=== PATIENT | female | born 1995 | race American Indian/Alaskan Native ===

== ENCOUNTER 2018-11-08 17:59 | Observation (INO) | payer MEDICAID ==
[2018-11-22] MEDS ORDERED: Gadodiamide 287 MG/ML VIAL (15ML) IV ONE (16:12)
[2018-11-22 17:25] VITALS: BMI 36.3
--- NOTE | 2018-11-22 19:38 | CP.PCM.HP ---
<Sultan Alba - Last Filed: 11/22/18 19:57> History of Present Illness - History of Present Illness History of Present Illness: 23 year old Female with PMHx of seizure disorder, PCOS, prediabetes and mood disorder admitted to ICU for 24 hour video EEG. Patient reports she started to develop seizure episodes starting February 2018 and has had multiple episodes since then. States last seizure was about a month ago. Denies any acute complaints today. Denies any headache, dizziness, chest pain, nausea or vomiting. LMP 10/03/18 ROS: All 12 systems reviewed and negative except as mentioned in HPI Neurologist: Dr. Velez PMHx: seizure disorder, PCOS, prediabetes, mood disorder Surgical hx: Adenoidectomy at age 13 Social hx: social EtOH use. Denies smoking cigarettes or using illicit drugs Family hx: Maternal cousin has seizure disorder Allergies: NKDA Medication: Seroquel 700 mg po qhs, metformin 500 mg po daily (has not started yet) Present on Admission - Present on Admission Any Indicators Present on Admission: No Review of Systems - Review of Systems Review of Systems: All 12 systems reviewed and negative except as mentioned in HPI Past Patient History - Past Social History Smoking Status: Never Smoked - CARDIAC Hx Cardiac Disorders: No - PULMONARY Hx Respiratory Disorders: No - NEUROLOGICAL Hx Neurological Disorder: No - HEENT Hx HEENT Problems: No - RENAL Hx Chronic Kidney Disease: No - ENDOCRINE/METABOLIC Hx Endocrine Disorders: Yes Other/Comment: Pre-diabetes - HEMATOLOGICAL/ONCOLOGICAL Hx Blood Disorders: No - INTEGUMENTARY Hx Dermatological Problems: No - MUSCULOSKELETAL/RHEUMATOLOGICAL Hx Musculoskeletal Disorders: No Hx Falls: No - GASTROINTESTINAL Hx Gastrointestinal Disorders: No - GENITOURINARY/GYNECOLOGICAL Hx Genitourinary Disorders: Yes Other/Comment: PCOS - PSYCHIATRIC Hx Psychophysiologic Disorder: Yes Hx Substance Use: No Other/Comment: OCD - SURGICAL HISTORY Hx Surgeries: Yes - ANESTHESIA Hx Anesthesia: Yes Hx Anesthesia Reactions: No Hx Malignant Hyperthermia: No Has any member of the family had a problem w/ anesthesia?: No Meds Allergies/Adverse Reactions: Allergies Allergy/AdvReac Type Severity Reaction Status Date / Time No Known Allergies Allergy Verified 11/22/18 17:32 Physical Exam - Constitutional Appears: No Acute Distress Additional comments: Overweight - Head Exam Head Exam: NORMAL INSPECTION - Eye Exam Eye Exam: Normal appearance - ENT Exam ENT Exam: Mucous Membranes Moist - Neck Exam Neck exam: Positive for: Normal Inspection - Respiratory Exam Respiratory Exam: Clear to Auscultation Bilateral, NORMAL BREATHING PATTERN. absent: Rhonchi, Wheezes - Cardiovascular Exam Cardiovascular Exam: REGULAR RHYTHM, +S1, +S2 - GI/Abdominal Exam GI & Abdominal Exam: Normal Bowel Sounds, Soft. absent: Tenderness - Extremities Exam Extremities exam: Positive for: normal inspection - Neurological Exam Neurological exam: Alert, Oriented x3 - Psychiatric Exam Psychiatric exam: Normal Affect, Normal Mood - Skin Skin Exam: Normal Color Results - Vital Signs Recent Vital Signs: Last Vital Signs Temp Pulse 92 H 11/22/18 18:26 Resp 19 11/22/18 18:26 BP 136/88 11/22/18 18:00 Pulse Ox 100 11/22/18 18:26 Assessment & Plan - Assessment and Plan (Free Text) Assessment: 23 year old Female with PMHx of seizure disorder, PCOS, prediabetes and mood disorder admitted for ICU for 24 hour video EEG. Patient reports she started to develop seizure episodes since February 2018 and has had multiple episodes since then. States last seizure was about a month ago. Denies any acute complaints today. Denies any headache, dizziness, chest pain, nausea or vomiting. LMP 10/03/18 Plan: Seizure disorder -Consult neurology, Dr. Velez. -Patient had brain MRI today. f/u brain MRI report Prediabetes -Hold metformin -Insulin lispro ACHS -accucheck ACHS Mood disorder -c/w home medication of seroquel 700 mg po hs DVT prophylaxis -SCDs Plan discussed with Dr. Jay Willis, pgy-2 <Allison Thompson - Last Filed: 11/23/18 18:07> Results - Vital Signs Recent Vital Signs: Last Vital Signs Temp 97.6 F 11/23/18 12:00 Pulse 88 11/23/18 18:00 Resp 19 11/23/18 18:00 BP 123/80 11/23/18 18:00 Pulse Ox 100 11/23/18 18:00 - Labs Labs: Laboratory Results - last 24 hr 11/22/18 11/22/18 11/23/18 19:04 21:46 06:23 POC Glucose (mg/dL) 95 107 102 11/23/18 11/23/18 12:09 17:57 POC Glucose (mg/dL) 111 H 98 Attending/Attestation - Attestation I have personally seen and examined this patient.: Yes I have fully participated in the care of the patient.: Yes I have reviewed all pertinent clinical information: Yes Notes (Text): 11/23/18 18:07 agree with findings and plan as above.
[2018-11-22] MEDS: Insulin Lispro (humaLOG) 100 Units/ml Inj SC SCH (22:36)
--- NOTE | 2018-11-23 07:14 | PCM.VEEG ---
Video EEG - Procedure Start Date: 11/22/18 Start Time: 20:15 End Date: 11/23/18 End Time: 07:00 Technical Summary: DATA ACQUISITION: This was a multichannel inpatient video-EEG, a minimum of 22 channels were uti lized, performed in accordance with recommendations specified by the [place] [employer] (Nicolasa Coronel et al. ACNS Guideline 1: Minimum Technical Requirements for Performing Clinical Electroencephalography. Journal of Clinical Neurophysiology 2016;33:303-7). The 10-20 electrode placement system was utilized in accordance with guidelines detailed by the International Federation of Clinical Neurophysiology (Gino Draper et al. The Ten-Twenty Electrode System of the International Federation. Recommendations for the Practice of Clinical Neurophysiology: Guidelines of the International Federation of Clinical Physiology 1999; EEG Suppl. 52.). DATA REVIEW / SPIKE DETECTION / DIGITAL ANALYSIS: The entire EEG was scanned and reviewed. Synchronized audio and video recording were reviewed at the time of each alarm and whenever an abnormality or suspicious activity was noted. The entire recording was analyzed utilizing an automated digital spike and seizure analysis program and all automatic spike and seizure detections were manually reviewed. A compressed spectral array was displayed and reviewed alongside the raw EEG tracings. In addition, further analysis of the EEG was performed when abnormalities were identified, including montage changes, dipole source localization, and frequency band identification. This study was attended 24 hours per day. - Interpretation Description of the study: 23 y/o woman admitted electively for VEEG events characterization. EEG Finding during wakefulness: During active states, the EEG was characterized by 14-25 Hz, 15-30 uV activity bilaterally in fronto-central regions. Resting wakefulness was characterized by a symmetric posterior dominant rhythm of 9 to 10 Hz, 30-50 uV, which was reactive to eye opening and closing. Drowsiness was associated with slow roving eye movements, slowing and fragmentation of the posterior dominant rhythm, and bilateral 4-7 Hz, 40-70 uV theta activity, sometimes with a shifting predominance. Hyperventilation and photic stimulation were not performed EEG Finding during sleep: Light sleep was recorded and was characterized by fronto-central slowing at 5-7 H, 50-125 uV, sharp central vertex waves, bilateral sleep spindles, and K- complexes; shifting asymmetries were evident. Deeper stages of sleep were recorded and were characterized an increasing frequency of 1-4 Hz, 50-100 uV delta activity. REM sleep was also recorded and was characterized by mixed frequency (3-15 Hz) low voltage (< 20 uV) activity with clusters of rapid horizontal and vertical eye movements. There were no significant asymmetries noted during sleep. Interictal non-epileptiform abnormalities: None Interictal epileptiform abnormalities: None Ictal epileptiform abnormalities: No seizures 1 PB activation at 5;34 patient pushes, no abnormal behavior seen. Not clear if she had a typical episode or not. EEG; normal awake architecture Induction procedures: none - Impression Impression: This is a normal Video EEG monitoring study.
[2018-11-23] MEDS: Insulin Lispro (humaLOG) 100 Units/ml Inj SC SCH ×3 (08:38→21:22)
--- NOTE | 2018-11-23 15:49 | CP.PCM.PN ---
Subjective - Date & Time of Evaluation Date of Evaluation: 11/23/18 Time of Evaluation: 11:30 - Subjective Subjective: Patient seen bedside. Undergoing 36 hour EEG monitoring Hemodynamically stable Objective - Vital Signs/Intake and Output Vital Signs (last 24 hours): Temp Pulse Resp BP Pulse Ox 97.6 F 68 22 111/75 99 11/23/18 12:00 11/23/18 14:00 11/23/18 14:00 11/23/18 14:00 11/23/18 14:00 Intake and Output: 11/23/18 11/23/18 06:59 18:59 Intake Total 100 600 Balance 100 600 - Medications Medications: Current Medications Insulin Human Lispro (Humalog) 0 units SC [facility]; Protocol Last Admin: 11/23/18 08:38 Dose: Not Given Quetiapine Fumarate (Seroquel) 300 mg PO [facility] Last Admin: 11/22/18 22:36 Dose: 300 mg Quetiapine Fumarate (Seroquel) 400 mg PO [facility] Last Admin: 11/22/18 22:36 Dose: 400 mg - Constitutional Appears: Non-toxic, No Acute Distress - Head Exam Head Exam: ATRAUMATIC, NORMOCEPHALIC - Eye Exam Eye Exam: EOMI, Normal appearance Pupil Exam: NORMAL ACCOMODATION - ENT Exam ENT Exam: Normal Exam - Neck Exam Neck Exam: Full ROM, Normal Inspection - Respiratory Exam Respiratory Exam: Clear to Ausculation Bilateral, NORMAL BREATHING PATTERN. absent: Respiratory Distress - Cardiovascular Exam Cardiovascular Exam: REGULAR RHYTHM, +S1, +S2. absent: JVD - GI/Abdominal Exam GI & Abdominal Exam: Soft, Normal Bowel Sounds. absent: Distended, Guarding, Tenderness, Rebound - Rectal Exam Rectal Exam: Deferred - Extremities Exam Extremities Exam: Normal Capillary Refill, Normal Inspection. absent: Pedal Edema - Back Exam Back Exam: NORMAL INSPECTION - Neurological Exam Neurological Exam: Alert, Awake, CN II-XII Intact, Oriented x3 - Psychiatric Exam Psychiatric exam: Normal Affect - Skin Skin Exam: Dry, Normal Color, Warm Assessment and Plan - Assessment and Plan (Free Text) Assessment: 23 year old Female with PMHx of seizure disorder, PCOS, prediabetes and mood disorder admitted for ICU for 24 hour video EEG.She reported developing seizures since February 2018 and has had multiple episodes since then. At present hemodynamicvally stable EEG monitoring as of now has shown no seizure activity. As per Neuro will continue EEG monityoring for 36 hours 1.Seizure disorder continue EEG monitoring for 36 hours as per neuro neurology consult with Dr. Agustin baumann 2.Prediabetes accuchecks ACHS, insulin coverage 3.Mood disorder on seroquel 4.DVT prophylaxis SCDs
--- NOTE | 2018-11-23 20:14 | CP.PCM.CON ---
History of Present Illness - History of Present Illness History of Present Illness: Neurology consult called by DR. Allison MESA mD Miss Amy Ray is a patient of mine from clinic, referred for Video eeg monitoring session of 36 hours. Miss Ray started to have Past Patient History - Past Social History Smoking Status: Never Smoked - CARDIAC Hx Cardiac Disorders: No - PULMONARY Hx Respiratory Disorders: No - NEUROLOGICAL Hx Neurological Disorder: No - HEENT Hx HEENT Problems: No - RENAL Hx Chronic Kidney Disease: No - ENDOCRINE/METABOLIC Hx Endocrine Disorders: Yes Other/Comment: Pre-diabetes - HEMATOLOGICAL/ONCOLOGICAL Hx Blood Disorders: No - INTEGUMENTARY Hx Dermatological Problems: No - MUSCULOSKELETAL/RHEUMATOLOGICAL Hx Musculoskeletal Disorders: No Hx Falls: No - GASTROINTESTINAL Hx Gastrointestinal Disorders: No - GENITOURINARY/GYNECOLOGICAL Hx Genitourinary Disorders: Yes Other/Comment: PCOS - PSYCHIATRIC Hx Psychophysiologic Disorder: Yes Hx Substance Use: No Other/Comment: OCD - SURGICAL HISTORY Hx Surgeries: Yes - ANESTHESIA Hx Anesthesia: Yes Hx Anesthesia Reactions: No Hx Malignant Hyperthermia: No Has any member of the family had a problem w/ anesthesia?: No Meds Allergies/Adverse Reactions: Allergies Allergy/AdvReac Type Severity Reaction Status Date / Time No Known Allergies Allergy Verified 11/22/18 17:32 - Medications Medications: Current Medications Insulin Human Lispro (Humalog) 0 units SC [facility]; Protocol Last Admin: 11/23/18 12:00 Dose: Not Given Quetiapine Fumarate (Seroquel) 300 mg PO [facility] Last Admin: 11/22/18 22:36 Dose: 300 mg Quetiapine Fumarate (Seroquel) 400 mg PO [facility] Last Admin: 11/22/18 22:36 Dose: 400 mg Results - Vital Signs Recent Vital Signs: Last Vital Signs Temp 97.6 F 11/23/18 12:00 Pulse 88 11/23/18 18:00 Resp 19 11/23/18 18:00 BP 123/80 11/23/18 18:00 Pulse Ox 100 11/23/18 18:00 - Labs Labs: Laboratory Results - last 24 hr 11/22/18 11/22/18 11/23/18 19:04 21:46 06:23 POC Glucose (mg/dL) 95 107 102 11/23/18 11/23/18 12:09 17:57 POC Glucose (mg/dL) 111 H 98
[2018-11-24] MEDS: Insulin Lispro (humaLOG) 100 Units/ml Inj SC SCH ×2 (06:36→13:16)
[2018-11-24 09:25] VITALS: TEMP 98
--- NOTE | 2018-11-24 10:48 | CP.PCM.DIS ---
Provider - Provider Date of Admission: 11/22/18 17:35 Attending physician: Allison Thompson DO Consults: 11/22/18 19:24 Neurology Consult Routine Comment: Consulting Provider: Gustavo Velez Consulting Physician: Gustavo Velez Reason for Consult: hx epilepsy, 24 hr video EEG Time Spent in preparation of Discharge (in minutes): 10 Hospital Course - Lab Results Lab Results: Micro Results 11/22/18 08:06 Naris MRSA Culture (Admit) - Final MRSA NOT DETECTED Most Recent Lab Values POC Glucose (mg/dL) 97 mg/dL (65-110) 11/24/18 05:15 - Hospital Course Hospital Course: 23 year old Female with PMHx of seizure disorder, PCOS, pre diabetes and mood disorder admitted for ICU for 36 hour video EEG monitoring .She reported developing seizures since February 2018 and has had multiple episodes since then. At present hemodynamicvally stable EEG monitoring as of now has shown no seizure activity. Patient to be discharged home after testing and follow up with Dr. Velez 1.Seizure disorder EEG monitoring for 36 hours as per neuro neurology consult with Dr. Velez appreciated F/u with neuro outpatient 2.Prediabetes accuchecks ACHS, insulin coverage Fol;low up with PMD 3.Mood disorder on seroquel 4.DVT prophylaxis SCDs Discharge Exam - Head Exam Head Exam: ATRAUMATIC, NORMOCEPHALIC - Eye Exam Eye Exam: EOMI, PERRL Pupil Exam: NORMAL ACCOMODATION - ENT Exam ENT Exam: Normal Exam - Neck Exam Neck exam: Full Rom, Normal Inspection - Respiratory Exam Respiratory Exam: Clear to PA & Lateral, NORMAL BREATHING PATTERN. absent: Rhonchi, Wheezes, Respiratory Distress - Cardiovascular Exam Cardiovascular Exam: REGULAR RHYTHM, +S1, +S2. absent: JVD - GI/Abdominal Exam GI & Abdominal Exam: Normal Bowel Sounds, Soft. absent: Distended, Guarding, Rebound, Tenderness - Rectal Exam Rectal Exam: Deferred - Extremities Exam Extremities exam: normal capillary refill, normal inspection, pedal pulses present - Back Exam Back exam: NORMAL INSPECTION - Neurological Exam Neurological exam: Alert, CN II-XII Intact, Oriented x3 - Psychiatric Exam Psychiatric exam: Normal Affect, Normal Mood - Skin Skin Exam: Dry, Intact, Normal Color, Warm Discharge Plan - Follow Up Plan Condition: GOOD Disposition: HOME/ ROUTINE Patient education suggested?: Yes Instructions: Seizures, Adult (DC) Referrals: Gustavo Velez MD [Medical Doctor] -
[2018-11-24 10:53] VITALS: O2SAT 100
[2018-11-24 13:16] VITALS: BP 124/75; PULSE 78; RESP 22
--- NOTE | 2018-11-26 13:56 | PCM.VEEG ---
Video EEG - Interpretation Description of the study: Start Date: 11/22/18 Start Time: 20:15 End Date: 11/23/18 End Time: 07:00 Technical Summary: DATA ACQUISITION: This was a multichannel inpatient video-EEG, a minimum of 22 channels were utilized, performed in accordance with recommendations specified by the [place] [employer] (Nicolasa Coronel et al. ACNS Guideline 1: Minimum Technical Requirements for Performing Clinical Electroencephalography. Journal of Clinical Neurophysiology 2016;33:303-7). DATA REVIEW / SPIKE DETECTION / DIGITAL ANALYSIS: The entire EEG was scanned and reviewed. Synchronized audio and video recording were reviewed at the time of each alarm and whenever an abnormality or suspicious activity was noted. The entire recording was analyzed utilizing an automated digital spike and seizure analysis program and all automatic spike and seizure detections were manually reviewed. A compressed spectral array was displayed and reviewed alongside the raw EEG tracings. In addition, further analysis of the EEG was performed when abnormalities were identified, including montage changes, dipole source localization, and frequency band identification. This study was attended 24 hours per day. - Interpretation Description of the study: 23 yr old woman who is my patient from clinic and had several spells over the last year involving confusion, loss of tone and loss of consciousness with observed tonic shaking. She has a normal MRI brain and is admitted to characterize these spells. SHE is currently not on an any antiepileptic medications. EEG Finding during wakefulness: The normal, awake, eeg showed maximally a 9-10 Hz maximal posterior dominant rhythm, that was reactive, symmetric and attenuated with eye opening. There was a normal amount of frontal beta noted that was over 14-18 hz mainly in the frontal leads, symmetric in nature. Normal drowsiness was captured. There were no interictal discharges or subclinical or clinical seizures. Normal sleep was captured with K complexes, slow wave sleep and sleep spindles. Abnormal slowing was not seen. No seizures 1 PB activation at 5;34 patient pushes, no abnormal behavior seen. Not clear if she had a typical episode or not. EEG; normal awake architecture Induction procedures: none - Impression Impression: This is a normal Video EEG monitoring study. Dr. Gustavo Velez MD DPN
== END 2018-11-24 13:00 | disposition home or self-care (01) ==
LOC: H.ICU/CCU 11-22 17:35
PROVIDERS: ADMIT Student in an Organized Health Care Education/Training Program; ATTEND Student in an Organized Health Care Education/Training Program
DX: G40.909 Epilepsy, unspecified, not intractable, without status epilepticus (principal); E28.2 Polycystic ovarian syndrome; F39 Unspecified mood [affective] disorder; F42.9 Obsessive-compulsive disorder, unspecified; R73.03 Prediabetes
CPT/HCPCS: 82948; 87081; 95951; A9579; G0378